=== PATIENT | male | born 1995 | race Caucasian/White ===

== ENCOUNTER 2016-12-20 00:23 | Emergency (ER) | payer OTHER ==
[2016-12-20 00:57] VITALS: BP 119/75
--- NOTE | 2016-12-20 01:22 | ED ---
Skin Complaint - HPI Summary HPI Summary: Patient works in a lab at [employer]. He was working with dilute hydroflouric acid while wearing "thin white nitrite gloves underneath thick green nitrite gloves" when he noticed the gloves were wet. This worried him, so he began treating himself as if he had an exposure with calcium gluconate 2.5% after flushing his hands with water for approximately 15 minutes. He denies burning, pain or redness on his hands. No lightheadedness. - History of Current Complaint Chief Complaint: EDChemNuclearExpose Time Seen by Provider: 12/20/16 00:58 Stated Complaint: POSS CHEMICAL EXPOSURE Hx Obtained From: Patient Onset/Duration: Started Hours Ago Skin Exposure Onset/Duration: Hours Ago Timing: Constant Onset Severity: Mild Current Severity: None Pain Intensity: 0 Skin Location: Hand - bilateral Aggravating Symptom(s): Nothing Alleviating Symptom(s): Nothing Associated Signs & Symptoms: Negative Related History: Possible Reaction to: Environmental Exposure - Allergy/Home Medications Allergies/Adverse Reactions: Allergies Allergy/AdvReac Type Severity Reaction Status Date / Time No Known Allergies Allergy Verified 12/20/16 00:43 PMH/Surg Hx/FS Hx/Imm Hx Previously Healthy: Yes Infectious Disease History: No Infectious Disease History: Denies: Traveled Outside the [place] in Last 30 Days - Family History Known Family History: Positive: None - Social History Occupation: Student Lives: With Family Alcohol Use: Rare Substance Use Type: Reports: None Smoking Status (MU): Never Smoked Tobacco Review of Systems All Other Systems Reviewed And Are Negative: Yes Physical Exam Triage Information Reviewed: Yes Vital Signs On Initial Exam: Initial Vitals Temp Pulse Resp BP Pulse Ox 98.2 F 71 18 119/75 100 12/20/16 00:43 12/20/16 00:43 12/20/16 00:43 12/20/16 00:43 12/20/16 00:43 Vital Signs Reviewed: Yes Appearance: Positive: Well-Appearing, No Pain Distress, Well-Nourished Skin: Positive: Warm, Skin Color Reflects Adequate Perfusion, Dry, Soft - no erythema or edema noted in bilateral hands; skin intact without blisters or peeling Head/Face: Positive: Normal Head/Face Inspection Eyes: Positive: EOMI, TOMY, Conjunctiva Clear ENT: Positive: Hearing grossly normal Respiratory/Lung Sounds: Positive: Breath Sounds Present Cardiovascular: Positive: RRR Musculoskeletal: Positive: Strength/ROM Intact. Negative: Pain @, Edema Left, Edema Right Neurological: Positive: Sensory/Motor Intact, Alert, Oriented to Person Place, Time, NV Bundle Intact Distally Psychiatric: Positive: Affect/Mood Appropriate AVPU Assessment: Alert Diagnostics - Vital Signs Vital Signs Temp Pulse Resp BP Pulse Ox 12/20/16 00:43 98.2 F 71 18 119/75 100 - Laboratory Result Diagrams: 12/20/16 01:21 12/20/16 01:21 Lab Statement: Any lab studies that have been ordered have been reviewed, and results considered in the medical decision making process. Course/Dx - Differential Diagnoses - Skin Complaint Differential Diagnoses: Allergic Reaction, Cellulitis, Contact Dermatitis, Drug Rash, Electrolyte Abnormality, Local Allergic Reaction, Systemic Illness, Urticaria - Diagnoses Provider Diagnoses: Exposure to chemical irritant Discharge - Discharge Plan Condition: Stable Disposition: HOME Patient Education Materials: Chemical Skin Burn (ED) Referrals: [facility] KAMRAN Peoples [Primary Care Provider] - Additional Instructions: You do not appear to have a chemical burn on exam. If symptoms change or are concerning, follow-up with [facility] for re-evaluation. If symptoms worsen you can return to the emergency department.
[2016-12-20 01:28] LABS: Hematocrit 42 % (42-52); Hemoglobin 14.1 g/dl (14.0-18.0); Mean Corpuscular HGB Conc 34 g/dl (31-36); Mean Corpuscular Hemoglobin 29 pg (27-31); Mean Corpuscular Volume 86 fL (80-94); Mean Platelet Volume 9 um3 (7.4-10.4); Red Blood Count 4.91 10^6/ul (4.0-5.4); Red Cell Distribution Width 13 % (10.5-15); White Blood Count 8.1 10^3/ul (3.5-10.8)
[2016-12-20 02:47] LABS: ALT 14 U/L (7-52); AST 21 U/L (13-39); Albumin 4.5 g/dL (3.2-5.2); Alkaline Phosphatase 64 U/L (34-104); Anion Gap 7 mmol/L (2-11); BUN/Creatinine Ratio 16.2 (8-20); Blood Urea Nitrogen 18 mg/dL (6-24); C Reactive Protein < 1.00 mg/L (< 5.00); CO2 Carbon Dioxide 28 mmol/L (22-32); Calcium 10.1 mg/dL (8.6-10.3); Chloride 102 mmol/L (101-111); EGFR African American 105.6 (>60); EGFR Non-African American 82.1 (>60); Glucose 94 mg/dL (70-100); Potassium 3.7 mmol/L (3.5-5.0); Sodium 137 mmol/L (133-145); Total Protein 7.5 g/dL (6.4-8.9)
== END 2016-12-20 02:14 | disposition home or self-care (01) ==
LOC: ED 00:23
DX: Z77.098 Contact with and (suspected) exposure to other hazardous, chiefly nonmedicinal, chemicals (principal)
CPT/HCPCS: 36415; 80053; 85025; 86140; 99282